=== PATIENT | male | born 1970 ===

== ENCOUNTER 2017-06-05 02:56 | Emergency (ER) | payer OTHER ==
[2017-06-05 03:05] VITALS: BP 132/89; PULSE 64; RESP 17; TEMP 97.9; O2SAT 95
[2017-06-05 04:08] LABS: HEMOGLOBIN 14.7 g/dL (12.0-18.0); MEAN CELL VOLUME 89.8 fl (80.0-94.0); MEAN CORPUSCULAR HEMOGLOBIN 30.8 pg (27.0-31.0); MEAN CORPUSCULAR HGB CONC 34.3 g/dL (33.0-37.0); RBC 4.77 Mil/uL (4.40-5.90); RED CELL DISTRIBUTION WIDTH 14.3 % (11.5-14.5); WHITE BLOOD COUNT 8.3 K/uL (4.8-10.8)
[2017-06-05 04:15] LABS: ALB/GLOB RATIO 1.3 (1.0-2.1); ALBUMIN 4.4 g/dL (3.5-5.0); ALT/SGPT 39 U/L (21-72); AST/SGOT 27 U/L (17-59); BLOOD UREA NITROGEN 15 mg/dl (9-20); CALCIUM 9.4 mg/dL (8.4-10.2); GFR AFRICAN-AMERICAN > 60; GFR NON-AFRICAN AMERICAN > 60
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
[2017-06-05] MEDS ORDERED: Emtricitabine-Tenofovir 200 mg-300 mg Tab PO STA (04:58)
[2017-06-05 12:49] LABS: HEPATITIS B SURFACE AG Negative (NEGATIVE)
== END 2017-06-05 05:30 | disposition home or self-care (01) ==
LOC: H.ER 02:56
DX: Z77.21 Contact with and (suspected) exposure to potentially hazardous body fluids (principal); Z20.9 Contact with and (suspected) exposure to unspecified communicable disease